=== PATIENT | male | born 1935 | race Two or more races ===

== ENCOUNTER 2020-08-19 07:15 | Day surgery (SDC) | payer OTHER | END 2020-08-19 13:55 | disposition home or self-care (01) | LOC: AMB-ENDOS 07:15 → EDBD 11:15 → AMB-ENDOS 11:15 | PROVIDERS: ATTEND Colon & Rectal Surgery | DX: K63.5 Polyp of colon (principal); K64.1 Second degree hemorrhoids; Z20.828 Contact with and (suspected) exposure to other viral communicable diseases ==